=== PATIENT | female | born 1990 | race Hispanic/Latino ===

== ENCOUNTER 2020-09-22 16:06 | Inpatient (IN) | payer OTHER ==
[2020-09-22] MEDS: Lactated Ringer's 1,000 ML IV SCH (16:11)
[2020-09-22] MEDS ORDERED: Magnesium Sulfate 20 gm/500 ml 20 GM/500 ML BAG ONE (16:16)
[2020-09-22] MEDS ORDERED: Lidocaine 1% (PF) 30 ML VIAL SC PRN (16:45)
[2020-09-22] MEDS ORDERED: Ibuprofen 800 MG TAB PO PRN (16:45)
[2020-09-22] MEDS ORDERED: Promethazine HCl 25 MG/ML VIAL IM PRN (16:45)
[2020-09-22] MEDS ORDERED: HYDROcodone/Acetaminophen 5/325 mg Tablet PO PRN ×2 (16:45)
[2020-09-22] MEDS ORDERED: NS w/ Oxytocin 30 units 500 ML IV PRN (16:56)
[2020-09-22] MEDS ORDERED: Calcium Gluc 4.6 MEQ/10 ML (100 MG/ML) SLOW IVP PRN (17:17)
[2020-09-22 17:47] VITALS: BMI 36.8
[2020-09-22 18:30] LABS: SARS-CoV-2 NAA Rapid Test Not Detected (NotDetected)
[2020-09-22 21:23] LABS: Hemoglobin 10.2 g/dL (12.0-15.5); Mean Corpuscular HGB CONC 32.9 g/dL (32.0-36.0); Mean Corpuscular Hemoglobin 28.6 pg (27.0-33.0); Mean Corpuscular Volume 86.8 fl (81.6-98.3); Mean Platelet Volume 12.2 fl (7.4-10.4); Platelet Count 186 10x3/uL (150-450); RBC Distribution Width 14.2 % (11.5-14.5); Red Blood Cell (RBC) Count 3.57 10x6/uL (3.90-5.03); White Blood Cell (WBC) Count 9.2 10x3/uL (3.5-10.5)
[2020-09-22 21:54] LABS: Hep B Surf Ag Non-Reactive S/CO (NonReactive); Syphilis Antibody Nonreactive (Nonreactive); Syphilis Antibody Index 0.03 S/CO (<1.00 Non-Reactive)
[2020-09-22] MEDS ORDERED: Misoprostol 100 MCG TAB VAG SCH (22:00)
[2020-09-22 22:03] LABS: HBSAg Index 0.27 S/CO (0-0.99)
[2020-09-22] MEDS: Misoprostol 100 MCG TAB PO SCH (22:25)
[2020-09-22] MEDS ORDERED: diphenhydrAMINE 50 MG/ML VIAL IVP PRN (23:45)
[2020-09-23] MEDS: Misoprostol 100 MCG TAB PO SCH ×3 (02:25→10:33)
[2020-09-23] MEDS: Ondansetron PF 4 MG/2 ML Vial IVP PRN ×2 (02:34→19:05)
[2020-09-23] MEDS: Magnesium Sulfate 20 gm/500 ml 20 GM/500 ML BAG IVPB SCH ×2 (02:48→13:10)
[2020-09-23] MEDS: hydrALAZINE 20 MG/ML VIAL SLOW IVP PRN ×2 (05:35→06:06)
[2020-09-23] MEDS: Butorphanol Tartrate 1 MG/ML VIAL SLOW IVP PRN ×3 (06:13→16:01)
[2020-09-23] MEDS: Lactated Ringer's 1,000 ML IV SCH ×2 (06:30→16:44)
[2020-09-23] MEDS ORDERED: Butorphanol Tartrate 1 MG/ML VIAL ONE (07:55)
[2020-09-23] MEDS ORDERED: Misoprostol 100 MCG TAB ONE (10:10)
[2020-09-23] MEDS ORDERED: Bicitra 30 ML UDCUP PO PRN (14:23)
[2020-09-23] MEDS ORDERED: Famotidine/PF 20 mg/2ml Vial SLOW IVP PRN (14:23)
[2020-09-23] MEDS ORDERED: CEFAZOLIN 2 GM in Premix Bag 1 BAG IVPB SCH (14:30)
[2020-09-23] MEDS ORDERED: Morphine PF 10 MG/10 ML VIAL ONE (16:19)
[2020-09-23] MEDS ORDERED: Ondansetron PF 4 MG/2 ML Vial ONE (16:20)
[2020-09-23] MEDS ORDERED: Oxytocin 10 UNITS/ML VIAL ONE (16:20)
[2020-09-23] MEDS ORDERED: Dexamethasone 4 mg/ml Vial ONE (16:20)
[2020-09-23] MEDS ORDERED: PHENYLEPHRINE-NS 100 MCG/ML 10 ML SYRINGE ONE (16:20)
[2020-09-23] MEDS ORDERED: Acetaminophen 325 MG TAB PO PRN (17:53)
[2020-09-23] MEDS ORDERED: Simethicone Chewable 80 MG TAB PO PRN (17:53)
[2020-09-23] MEDS ORDERED: Lanolin Ointment 7 GM TUBE TOP PRN (17:53)
[2020-09-23] MEDS ORDERED: diphenhydrAMINE 25 MG CAP PO PRN (17:53)
[2020-09-23] MEDS ORDERED: Misoprostol 200 MCG TAB PR PRN (17:53)
[2020-09-23] MEDS ORDERED: NS / Oxytocin 40 units/1000ml 1,000 ML IV SCH (18:00)
[2020-09-23] MEDS ORDERED: Promethazine HCl 25 MG/ML VIAL IM PRN (18:04)
[2020-09-23] MEDS ORDERED: Naloxone HCl 0.4 mg/ml Vial IVP PRN ×2 (18:04)
[2020-09-23] MEDS ORDERED: Ondansetron PF 4 MG/2 ML Vial IVP PRN (18:04)
[2020-09-23] MEDS ORDERED: diphenhydrAMINE 50 MG/ML VIAL IVP PRN (18:04)
[2020-09-23] MEDS ORDERED: Promethazine HCl 25 MG SUPP PR PRN (18:04)
[2020-09-23] MEDS ORDERED: Naloxone HCl 0.4 mg/ml Vial IV PRN (18:04)
[2020-09-23] MEDS ORDERED: Morphine 4 MG/ML VIAL SLOW IVP PRN (18:09)
[2020-09-23] MEDS ORDERED: Communication Order-Pharmacy FS SCH (18:15)
[2020-09-23] MEDS ORDERED: HYDROmorphone 0.5 MG/0.5 ML SYRINGE SLOW IVP SCH (18:15)
[2020-09-23] MEDS: Meperidine HCl/PF 25 MG/ML VIAL SLOW IVP PRN ×2 (18:59→21:09)
[2020-09-23] MEDS: Ketorolac Tromethamine 30 MG/ML VIAL IVP PRN (18:59)
[2020-09-23] MEDS ORDERED: hydrALAZINE 20 MG/ML VIAL SLOW IVP PRN (22:24)
[2020-09-24 06:45] LABS: Hemoglobin 10.1 g/dL (12.0-15.5); Mean Corpuscular HGB CONC 32.5 g/dL (32.0-36.0); Mean Corpuscular Hemoglobin 28.9 pg (27.0-33.0); Mean Corpuscular Volume 88.9 fl (81.6-98.3); Mean Platelet Volume 12.3 fl (7.4-10.4); Platelet Count 197 10x3/uL (150-450); RBC Distribution Width 14.3 % (11.5-14.5); White Blood Cell (WBC) Count 14.1 10x3/uL (3.5-10.5)
[2020-09-24 07:47] LABS: HIV (1/2) Antibody/Antigen Non-Reactive (NonReactive); HIV 1/2 INDEX 0.08 S/CO (<1.00)
[2020-09-24] MEDS: Ibuprofen 800 MG TAB PO SCH ×2 (08:32→17:35)
[2020-09-24] MEDS: Ferrous Sulfate 325 MG TAB PO SCH (08:32)
[2020-09-24] MEDS ORDERED: Adacel (T-DAP) 0.5 ML SYRINGE IM ONE (09:00)
[2020-09-24] MEDS: Ketorolac Tromethamine 30 MG/ML VIAL IVP PRN ×2 (09:32→18:14)
[2020-09-24 13:32] LABS: Notified Whom: CBN; RapidComm Collect By CBN; pH (Cord, venous) 7.171 (7.250-7.350)
[2020-09-24 13:35] LABS: Notified Whom: CBN; RapidComm Collect By CBN
[2020-09-25] MEDS: Docusate Calcium (SURFAK) 240 MG CAP PO SCH ×3 (00:26→08:42)
[2020-09-25] MEDS: Ibuprofen 800 MG TAB PO SCH ×3 (00:26→14:18)
[2020-09-25] MEDS: Ferrous Sulfate 325 MG TAB PO SCH ×2 (08:41→08:42)
[2020-09-25] MEDS: Prenatal Vitamin 1 TAB PO SCH ×2 (08:41→08:42)
[2020-09-25] MEDS ORDERED: HYDROcodone/Acetaminophen 5/325 mg Tablet PO PRN (10:52)
[2020-09-25 11:50] VITALS: BP 163/80; TEMP 98.3
== END 2020-09-25 15:18 | disposition home or self-care (01) | DRG 788 ==
LOC: CSHLD 16:06 → CSHPP 09-24 20:37
PROVIDERS: ADMIT Obstetrics & Gynecology; ATTEND Obstetrics & Gynecology
PROC: 10D00Z1 Extraction of Products of Conception, Low, Open Approach (ICD-10-PCS; principal; 2020-09-23)
PROC: 4A1HXCZ Monitoring of Products of Conception, Cardiac Rate, External Approach (ICD-10-PCS; 2020-09-23)
DX: O14.14 Severe pre-eclampsia complicating childbirth (principal); Z3A.36 36 weeks gestation of pregnancy; Z37.0 Single live birth; F43.10 Post-traumatic stress disorder, unspecified; O99.344 Other mental disorders complicating childbirth; F31.9 Bipolar disorder, unspecified; O99.52 Diseases of the respiratory system complicating childbirth; J06.9 Acute upper respiratory infection, unspecified
CPT/HCPCS: 36415; 51702; 81003; 82805; 83735; 85027; 86780; 86850; 86900; 86901; 87340; 87389; J0360; J0595; J0690; J1100; J1200; J1885; J2175; J2270; J2405; J3475; U0002